=== PATIENT | female | born 1930 | race Caucasian/White ===

== ENCOUNTER 2018-11-09 06:48 | Observation (INO) | payer MEDICARE, BC ==
[~2018-11-09] VITALS: Ht 170.2 cm; Wt 58.8 kg
[2018-11-09] VITALS (12 sets, daily range): BP systolic 124–174; BP diastolic 57–80; PULSE 57–83; TEMP 97.3–98
[~2018-11-09 06:48] MED LIST: FERROUS SU325 MG/TAB PO; FOLIC ACID 40400 MCG PO; MAXZIDE 25 MG-31 TAB PO; TOPROL-XL200 MG PO; VITAMIN C500 MG PO; VITAMIN D31000 IU PO
[2018-11-09] MEDS ORDERED: ARICEPT 5MG PO (07:55)
[2018-11-09] MEDS ORDERED: TYLENOL 500MG500 MG PO (07:55)
--- NOTE | 2018-11-09 07:56 | NUR ---
TO RM 7 AT 0709- CALL LIGHT IN REACH BEDRAILS UP SON AT BEDSIDE.
--- NOTE | 2018-11-09 13:42 | NUR ---
PT TO ROOM 324 PER BED WITH CHANEL SANTORO PACU GIVING REPORT @ 1300. PT IS DROWSEY BUT AROUSEABLE.VSS, INCISON TO NECK CDI WITH KNOWLES SET OPEN TO AIR. SCDS PLACED BILATERALLY. FAMIILY AT BEDSIDE.
--- NOTE | 2018-11-09 18:53 | NUR ---
report to Heena SANTORO.
--- NOTE | 2018-11-09 19:00 | NUR ---
Report received. Assumed care for shift engineer. Assessment complete. VS have been stable. Rating pain 3/10 to throat-states she doesnt need interventions. States "it just feels a little sore/scratchy." Encouraged to call for increased pain and needs for intervention. Verbalizes understanding. Incision site to neck-edges well approximated-strong set-open to air. Bruising noted. Denies N/V. Voiding well. Denies needs. Encoraged to call for questions or concerns. Verbalizes understanding. Call light within reach. Bed in low position/wheels locked. Will monitor.
--- NOTE | 2018-11-09 23:20 | NUR ---
Up in room dressed, packing bag stating "I dont know where my son is and he is my ride home." Very anxious and worried she has been left. Confused about time of day and where her family went. Knows that she had a procedure done-what procedure-and why-just doesnt recall when her son left. Explained time of day and "losing time" due to anesthesia. Discussed plan of care as well. Verbalizes understanding. Is much more calm now but I did put bed alarm on and encouraged to call again for any questions or concerns. Did refuse to put gown back on stating "I will stay like this for now and call if I change my mind." Call light within reach. Bed in low position. Wheels locked alarm on.
--- NOTE | 2018-11-10 01:00 | NUR ---
Patient report received from MAUDE Naik at this time. Patient is resting comfortably in bed. NPO since NE for potential procedure today, pending pathology report from yesterday.
[2018-11-10 03:57] VITALS: BP 152/69; PULSE 63; TEMP 98.2
--- NOTE | 2018-11-10 07:12 | NUR ---
Patient report given to MAUDE Negrete. Patient resting comfortably at this time.
--- NOTE | 2018-11-10 08:00 | NUR ---
PATIENT INDEPENDENT IN ROOM AND SITTING UP IN ROOM ON WINDOW BENCH, DRESSED AND HOPING TO DISCHARGE HOME LATER TODAY. CLEANING HANDYMAN REPORTS PATIENT BECAME CONFUSED ONCE LAST NIGHT BUT WAS RE-ORIENTED AND WENT BACK TO SLEEP. PATIENT IS A&O THIS AM. VSS. DENIES PAIN. PATIENT REPORTS HER THROAT IS A LITTLE SORE BUT NO PAIN. NECK INCISION IS WELL APPROXIMATED WITH KNOWLES SET. SPEECH IS CLEAR. PATIENT NPO UNTIL PATH COMES BACK. SEE ORDERS. FAMILY JUST ARRIVING AT BEDSIDE. NO NEEDS AT THIS TIME.
[2018-11-10 08:02] VITALS: BP 147/65; PULSE 57; TEMP 98
--- NOTE | 2018-11-10 09:14 | NUR ---
Initial visit; Patient and family thanked Front Office Administrator for looking in on Gisela and offering spiritual care. Patient anxious over impending results from recent 'Procedure', Front Office Administrator offered encouragement.
--- NOTE | 2018-11-10 10:30 | NUR ---
SW met with patient and family to discuss discharge planning. Patient lives independenlty at home alone. Patient reports she does have family support if needed. Patient's PCP is Dr Montilla and she obtains prescriptions from [facility]. Patient reports she has a life alert, cane and four wheeled walk at home. Patient uses her cane more often than her walker. Patient does not have use any home health services and is independent with all ADLs. Patient does have a DPOA-HC and living will. SW does not anticipate any dishcarge needs.
[2018-11-10 11:22] VITALS: BP 140/62; PULSE 54; TEMP 98.1
--- NOTE | 2018-11-10 15:40 | NUR ---
PATIENT DISCHARGING HOME VIA WHEELCHAIR TO PERSONAL VEHICLE WITH SON. GAVE DISCHARGE INSTRUCTIONS AND FOLLOW UP APT. ANSWERED ALL QUESTIONS/CONCERNS. DC'D LEFT FORARM IV. SENT PERSONAL BELONGINGS. PATIENT DISCHARGED.
== END 2018-11-10 15:40 | disposition home or self-care (01) ==
LOC: SDCO 06:48 → SURG 12:14
PROVIDERS: ADMIT Surgery
DX: E04.9 Nontoxic goiter, unspecified (principal); I10 Essential (primary) hypertension; Z90.710 Acquired absence of both cervix and uterus; Z85.820 Personal history of malignant melanoma of skin; Z87.19 Personal history of other diseases of the digestive system; G25.81 Restless legs syndrome; Z86.718 Personal history of other venous thrombosis and embolism; Z96.652 Presence of left artificial knee joint; Z79.899 Other long term (current) drug therapy; Z88.0 Allergy status to penicillin
CPT/HCPCS: G0378; G0379; J0360; J0690; J1100; J1170; J2405; J2550; J2704; J3010; J7120